=== PATIENT | female | born 2000 | race Hispanic/Latino ===

== ENCOUNTER 2020-10-17 19:00 | Outpatient (CLI) | payer MEDICAID ==
[2020-10-17 19:38] VITALS: BP 120/76
== END 2020-10-17 22:00 | disposition home or self-care (01) ==
LOC: TRG 19:00 → APU 19:04 → TRG 22:00
PROVIDERS: ATTEND Obstetrics & Gynecology
DX: Z34.93 Encounter for supervision of normal pregnancy, unspecified, third trimester (principal); Z3A.37 37 weeks gestation of pregnancy
CPT/HCPCS: 36415; 59025; 84112

== ENCOUNTER 2020-10-28 10:27 | Outpatient (CLI) | payer MEDICAID ==
[2020-10-28 10:46] VITALS: BP 122/78
== END 2020-10-28 11:39 | disposition home or self-care (01) ==
LOC: TRG 10:27 → APU 10:28 → TRG 11:39
PROVIDERS: ATTEND Obstetrics & Gynecology
DX: Z34.93 Encounter for supervision of normal pregnancy, unspecified, third trimester (principal); Z3A.38 38 weeks gestation of pregnancy
CPT/HCPCS: 59025

== ENCOUNTER 2020-10-29 04:04 | Inpatient (IN) | payer MEDICAID ==
[2020-10-29] MEDS ORDERED: LIDOCAINE (2%) 20 MG/1 ML VIAL 20 ML MDV INFILTRATI ONE ×2 (05:08→10:05)
[2020-10-29] MEDS ORDERED: NALOXONE 0.4 MG/1 ML INJ IV PRN (05:08)
[2020-10-29] MEDS ORDERED: BUTORPHANOL 2 MG/1 ML INJ IV PRN ×2 (05:08)
[2020-10-29] MEDS ORDERED: ePHEDrine SULFATE 50 MG/1 ML INJ IV PRN (05:08)
[2020-10-29] MEDS ORDERED: ONDANSETRON 4 MG/2 ML INJ IV PRN (05:08)
[2020-10-29] MEDS ORDERED: MINERAL OIL 30 ML ORAL LIQD PO PRN (05:08)
[2020-10-29] MEDS ORDERED: CARBOPROST TROMETHAMINE 250 MCG/1 ML INJ IM PRN (05:08)
[2020-10-29] MEDS ORDERED: OXYTOCIN 10 UNIT/1 ML INJ IM PRN (05:08)
[2020-10-29] MEDS ORDERED: METHYLERGONOVINE MALEATE 0.2 MG/ML VIAL IM PRN (05:08)
[2020-10-29] MEDS ORDERED: fentaNYL 100 MCG/2 ML INJ IV PRN (05:08)
[2020-10-29] MEDS ORDERED: LOPERAMIDE 2 MG CAP PO PRN (05:08)
[2020-10-29] MEDS ORDERED: miSOPROStol 200 MCG TAB PR PRN (05:08)
[2020-10-29] MEDS ORDERED: TERBUTALINE 1 MG/1 ML INJ SUB-Q PRN (05:08)
[2020-10-29] MEDS ORDERED: LACTATED RINGERS 1,000 ML IV SCH (05:15)
[2020-10-29] MEDS ORDERED: OXYTOCIN DRIP 30 UNITS/500 ML BAG IV SCH ×2 (06:00)
[2020-10-29 06:18] LABS: Hematocrit 31.5 % (30.3-42.9); Hemoglobin 10.2 gm/dl (10.1-14.3); Mean Corpuscular HGB Conc 33 % (30-34); Mean Corpuscular Volume 86 fl (79-97); Platelet Count 284 K/mm3 (140-440); Red Blood Count 3.65 M/mm3 (3.65-5.03); Red Cell Distribution Width 13.2 % (13.2-15.2)
[2020-10-29] MEDS ORDERED: WITCH HAZEL/ GLYCERIN PAD TP PRN (11:33)
[2020-10-29] MEDS ORDERED: BENZOCAINE/MENTHOL 20/0.5% TOP SPRAY 56 GM TP PRN (11:33)
[2020-10-29] MEDS ORDERED: LANOLIN/ZINC/DIMETHICONE (LANSINOH) 7 GM TP PRN (11:33)
[2020-10-29] MEDS ORDERED: PROMETHAZINE 25 MG TAB PO PRN (11:33)
[2020-10-29] MEDS ORDERED: diphenhydrAMINE 25 MG CAP PO PRN (11:33)
[2020-10-29] MEDS ORDERED: oxyCODONE /ACETAMINOPHEN 5-325MG TAB PO PRN (11:33)
[2020-10-29] MEDS ORDERED: MAGNESIUM HYDROXIDE (MOM) ORAL LIQD UDC PO PRN (11:33)
--- NOTE | 2020-10-29 12:03 | History and Physical Report ---
History of Present Illness Date of examination: 10/29/20 Date of admission: 10/29/20 04:05 Chief complaint: Active labor History of present illness: 19yo at 38.6 wks gestation. Initiated care with [facility] at 14wk gestation. Her has been complicated by asymetrical IUGR (total EFW - 10.5%tile). She presented to [facility] this am with reports of painful ctxs and cervical exam found to be 5cm. Reports +FM. Denies VB or LOF. Labs: O+, antibody negative; HIV negative; RPR negative; HBsAg negative; HSVs negative; Gc/Chlamydia/Trich negative; Rubella immune; 1hr gtt -105; GBS negative. Past History Past Medical History: no pertinent history Past Surgical History: other (Elective ) Family/Genetic History: hypertension Social history: single, Lives alone, full code. denies: smoking, alcohol abuse, prescription drug abuse, IV drug use - Obstetrical History Expected Date of Delivery: 11/06/20 Actual Gestation: 38 Week(s) 6 Day(s) : 2 Para: 0 Hx # Term Pregnancies: 0 Number of Pregnancies: 0 Spontaneous Abortions: 0 Induced : 1 Number of Living Children: 0 Medications and Allergies Allergies Allergy/AdvReac Type Severity Reaction Status Date / Time No Known Allergies Allergy Verified 10/29/20 07:21 Home Medications Medication Instructions Recorded Confirmed Last Taken Type No Known Home Medications [No 10/29/20 10/29/20 Unknown History Reported Home Medications] Active Meds: Active Medications Benzocaine/Menthol (Benzocaine/Menthol 20/0.5% Top [place] 56 Gm) 1 spray TP PRN PRN PRN Reason: Episiotomy Pain Bisacodyl (Bisacodyl 10 Mg Rect Supp) 10 mg DC BID PRN PRN Reason: Constipation Butorphanol Tartrate (Butorphanol 2 Mg/1 Ml Inj) 1 mg IV Q2H PRN PRN Reason: Pain, Moderate(4-6) LABOR PAIN Butorphanol Tartrate (Butorphanol 2 Mg/1 Ml Inj) 2 mg IV Q2H PRN PRN Reason: Pain , Severe (7-10) Last Admin: 10/29/20 07:19 Dose: 2 mg Documented by: Carboprost Tromethamine (Carboprost Tromethamine 250 Mcg/1 Ml Inj) 250 mcg IM ONCE PRN PRN Reason: Uterine Bleeding Diphenhydramine HCl (Diphenhydramine 25 Mg Cap) 25 mg PO Q6H PRN PRN Reason: Itching Ephedrine Sulfate (Ephedrine Sulfate 50 Mg/1 Ml Inj) 10 mg IV Q2M PRN PRN Reason: Hypotension Fentanyl (Fentanyl 100 Mcg/2 Ml Inj) 100 mcg IV Q2H PRN PRN Reason: Pain,Severe (7-10) LABOR PAIN Oxytocin/Sodium Chloride (Pitocin/Ns 30 Unit/500ml) 30 units in 500 mls @ 2 mls/hr IV TITR CANELO; Protocol Lactated Ringer's (Lactated Ringers) 1,000 mls @ 125 mls/hr IV DIRECT CANELO Last Admin: 10/29/20 07:36 Dose: 125 mls/hr Documented by: Oxytocin/Sodium Chloride (Pitocin/Ns 30 Unit/500ml) 30 units in 500 mls @ 40 mls/hr IV TITR CANELO; Protocol Last Admin: 10/29/20 10:11 Dose: 165 ml/hr, 165 mls/hr Documented by: Ibuprofen (Ibuprofen 600 Mg Tab) 600 mg PO Q6H CANELO Loperamide HCl (Loperamide 2 Mg Cap) 2 mg PO ONCE PRN PRN Reason: give with Hemabate Magnesium Hydroxide (Magnesium Hydroxide (Mom) Oral Liqd Udc) 30 ml PO HS PRN PRN Reason: Constipation Methylergonovine Maleate (Methylergonovine Maleate 0.2 Mg/Ml Vial) 0.2 mg IM ONCE PRN PRN Reason: Uterine Bleeding Mineral Oil (Mineral Oil 30 Ml Oral Liqd) 30 ml PO QHS PRN PRN Reason: Constipation Misoprostol (Misoprostol 200 Mcg Tab) 800 mcg DC ONCE PRN PRN Reason: Uterine Bleeding Multi-Ingredient Ointment (Lanolin/Zinc/Dimethicone (Lansinoh) 7 Gm) 1 applic TP PRN PRN PRN Reason: Sore Nipples Multivitamins/Iron/Calcium ( Mto67-On Fumarate-Folic Acid Vit Tab) 1 each PO QDAY CANELO Naloxone HCl (Naloxone 0.4 Mg/1 Ml Inj) 0.1 mg IV Q2MIN PRN PRN Reason: Res Rate </= 8 or 02 SAT < 92% Ondansetron HCl (Ondansetron 4 Mg/2 Ml Inj) 4 mg IV Q8H PRN PRN Reason: Nausea And Vomiting Oxycodone/Acetaminophen (Oxycodone /Acetaminophen 5-325mg Tab) 1 tab PO Q6H PRN PRN Reason: Pain, Moderate (4-6) Oxytocin (Oxytocin 10 Unit/1 Ml Inj) 10 unit IM ONCE PRN PRN Reason: Uterine Bleeding Promethazine HCl (Promethazine 25 Mg Tab) 25 mg PO Q6H PRN PRN Reason: Nausea And Vomiting Sodium Chloride (Sodium Chloride 0.9% 10 Ml Flush Syringe) 10 ml IV PRN NR Stop: 10/30/20 11:59 Terbutaline Sulfate (Terbutaline 1 Mg/1 Ml Inj) 0.25 mg SUB-Q ONCE PRN PRN Reason: Hyperstimulation/Hypertonicity [place]/Glycerin (Witch [place]/ Glycerin Pad) 1 each TP PRN PRN PRN Reason: Hemorrhoid/cleansing/soothing - Vital Signs Vital signs: Vital Signs Pulse BP 81 124/84 10/29/20 04:41 10/29/20 04:41 Temp Pulse Resp BP Pulse Ox 98.3 F 102 H 18 126/59 96 10/29/20 11:35 10/29/20 11:46 10/29/20 11:35 10/29/20 11:40 10/29/20 11:46 - Physical Exam Breasts: Positive: normal Cardiovascular: Regular rate Lungs: Positive: Normal air movement Abdomen: Positive: other (gravid) Genitourinary (Female): Positive: normal external genitalia, normal perenium Vagina: Positive: normal moisture Uterus: Positive: enlarged (S<D) Extremities: Positive: normal Deep Tendon Reflex Grade: Normal +2 - Obstetrical FHR: category 2 Uterine Contraction Monitor Mode: External Cervical Dilatation: 10 Cervical Effacement Percentage: 100 station: 1 Uterine Contraction Pattern: Regular Uterine Contraction Intensity: Strong/Firm Results Result Diagrams: 10/29/20 05:45 Abnormal lab results 10/29/20 Range/Units 05:45 WBC 12.2 H (4.5-11.0) K/mm3 All other labs normal. Assessment and Plan - Patient Problems (1) Active labor at term Current Visit: Yes Status: Acute Plan to address problem: Admit to L & D AROM @ 08, clear fluids Anticipate (2) IUGR (intrauterine growth restriction) affecting care of mother Current Visit: Yes Status: Acute Qualifiers: Fetus number: single or unspecified fetus
--- NOTE | 2020-10-29 12:09 | Procedure Note ---
OB Delivery Note - Delivery Date of Delivery: 10/29/20 (1451) Estimated blood loss: 200cc - Vaginal Delivery presentation: vertex, compound (left hand) Delivery position: OA Intrapartum events: none Delivery induction: AROM (848) Delivery augmentation: rupture of membranes Delivery monitor: external FHT, external uterine Route of delivery: Delivery placenta: spontaneous (958) Delivery cord: 3 umbilical vessels Episiotomy: none Delivery laceration: 2nd degree (perienal) Delivery repair: vicryl (3.0 - SH) Anesthesia: local Delivery comments: of viable, crying male infant placed directly to maternal abdomen. Placenta spontaneously delivered. Cord double clamped, cut by FOB after 8mins per pt request. Cord blood collected and sent to lab. Uterus firm @ U-3, hemostasis maintained. Perineum with 2nd degree laceration, repaired. Mother and baby safe, stable and left in care of RN. - Infant A at 1 minute: 8 at 5 minutes: 9 Gender: Male (Weight: 2920 gms (6lbs 7ozs) 17.5 inches)
[2020-10-29] MEDS: IBUPROFEN 600 MG TAB PO SCH (19:21)
[2020-10-30 00:05] LABS: Hemoglobin 9.6 gm/dl (10.1-14.3)
[2020-10-30] MEDS: IBUPROFEN 600 MG TAB PO SCH ×5 (05:32→18:11)
[2020-10-30] MEDS ORDERED: PRENATAL VIT27-FE FUMARATE-FOLIC ACID VIT TAB PO SCH (10:00)
--- NOTE | 2020-10-30 10:20 | Progress Note ---
Assessment and Plan - Patient Problems (1) Status post normal vaginal delivery Current Visit: Yes Status: Acute Plan to address problem: Continue routine PP orders Anticipate d/c home in 48 hrs if stable Subjective - Subjective Date of service: 10/30/20 Principal diagnosis: S/P ; PPD#1 Interval history: 19yo at 38.6 wks gestation. Initiated care with [facility] at 14wk gestation. Her has been complicated by asymetrical IUGR (total EFW - 10.5%tile). She presented to [facility] this am with reports of painful ctxs and cervical exam found to be 5cm. Reports +FM. Denies VB or LOF. Patient reports: appetite normal, voiding normally, pain well controlled, flatus, ambulating normally : doing well Objective - Vital Signs Latest vital signs: Vital Signs Temp Pulse Resp BP BP Pulse Ox 10/30/20 06:26 18 10/30/20 05:32 18 10/30/20 01:00 98.2 F 88 18 136/74 100 10/29/20 21:45 98.0 F 88 20 100/56 99 10/29/20 20:01 18 10/29/20 16:30 97.7 F 10/29/20 16:28 100 H 16 108/69 100 10/29/20 12:45 97.3 F L 95 H 18 127/69 98 10/29/20 11:46 102 H 96 10/29/20 11:41 107 H 98 10/29/20 11:40 97 H 126/59 10/29/20 11:36 105 H 97 10/29/20 11:35 98.3 F 18 10/29/20 11:31 95 H 98 10/29/20 11:26 97 H 98 10/29/20 11:21 100 H 97 10/29/20 11:17 106 H 91 10/29/20 11:16 101 H 117/63 98 10/29/20 11:11 92 H 99 10/29/20 11:06 99 H 99 10/29/20 11:01 101 H 99 10/29/20 10:56 100 H 130/74 99 10/29/20 10:51 97 H 99 10/29/20 10:46 108 H 98 10/29/20 10:41 117 H 100 10/29/20 10:36 110 H 98 05/15/21 10:31 104 H 99 10/29/20 10:29 107 H 93 10/29/20 10:26 97 H 100 10/29/20 10:21 104 H 98 10/29/20 10:20 98.5 F 18 10/29/20 10:16 97 H 133/76 99 10/29/20 10:11 95 H 100 10/29/20 10:06 96 H 100 10/29/20 10:03 106 H 128/60 10/29/20 10:01 108 H 100 10/29/20 10:00 98.3 F 20 10/29/20 09:56 114 H 99 10/29/20 09:51 125 H 99 10/29/20 09:46 104 H 100 10/29/20 09:41 105 H 93 10/29/20 09:36 98 H 100 10/29/20 09:31 106 H 99 10/29/20 09:27 97 H 94 10/29/20 09:26 100 H 99 10/29/20 09:21 113 H 96 10/29/20 09:16 102 H 98 10/29/20 09:11 104 H 98 10/29/20 09:06 87 99 10/29/20 09:01 100 H 98 10/29/20 08:56 108 H 98 Intake and Output 10/29/20 10/30/20 10/30/20 22:59 06:59 14:59 Intake Total 600 Output Total 800 Balance -200 Intake: Oral 240 Intake, Free Water 360 Output: Urine 800 Void 800 Other: Total, Intake Amount 240 Total, Output Amount 200 # Voids Void 1 - Exam Breasts: Present: normal Cardiovascular: Present: Regular rate Lungs: Present: Normal air movement Abdomen: Present: soft Uterus: Present: firm, fundal height below umbilicus Extremities: Present: normal Incision: Present: other (perineal laceration, healing as expected) - Labs Labs: Abnormal lab results 10/29/20 Range/Units 22:50 Hgb 9.6 L (10.1-14.3) gm/dl Hct 29.0 L (30.3-42.9) %
--- NOTE | 2020-10-30 10:31 | Discharge Summary ---
Providers - Providers Date of Admission: 10/29/20 04:05 Date of discharge: 10/30/20 Attending physician: ANTHONY ROSAS 10/29/20 11:36 Consult to Accreditation Manager [CONS] Routine Reason For Exam: assistance with , SNS Primary care physician: ANTHONY ROSAS Hospitalization Reason for admission: active labor Delivery: Procedure details: Please see delivery note. Episiotomy: none Laceration: 2nd degree Other procedures: none complications: none Discharge diagnosis: IUP at term delivered baby: male Hospital course: Pt was admitted in active labor and went on to have a vaginal delivery which she tolerated well. She was observed on until she met discharge criteria. She will follow up in the office in two weeks for laceration check. Condition at discharge: Stable Disposition: TO HOME OR SELFCARE - Discharge Diagnoses (1) Status post normal vaginal delivery Status: Acute (2) Anemia Status: Acute Qualifiers: Anemia type: unspecified type Qualified Code(s): D64.9 - Anemia, unspecified Plan - Discharge Medications Prescriptions: Ferrous Sulfate [Feosol 325 MG tab] 325 mg PO BID #60 tablet Ibuprofen [Motrin 800 MG tab] 800 mg PO Q8HR PRN #30 tablet PRN Reason: Pain, Moderate (4-6) HYDROcodone/APAP 5-325 [[place] 5/325] 1 each PO Q6HR PRN #10 tablet PRN Reason: Pain - Provider Discharge Summary Activity: routine, no sex for 6 weeks, no heavy lifting 4 weeks, no strenuous exercise Diet: routine Instructions: routine Additional instructions: [] Smoking cessation referral if applicable(refer to patient education folder for contact #) [] Refer to [facility] Booklet Call your doctor immediately for: * Fever > 100.5 * Heavy vaginal bleeding ( >1 pad per hour) * Severe persistent headache * Shortness of breath * Reddened, hot, painful area to leg or breast * Drainage or odor from incision. * Keep incision clean and dry at all times and follow doctor's instructions regarding bathing/showering - Follow up plan Follow up: CAITLIN RAY, DIP FILLER [Advanced Practice Nurse] - 14 Days (please schedule a laceration check )
[2020-10-30 16:37] VITALS: BP 105/62
== END 2020-10-30 18:20 | disposition home or self-care (01) | DRG 775 ==
LOC: TRG 04:04 → APU 04:05 → LD 04:05 → TRG 05:08 → LD 05:31 → OB 12:35
PROVIDERS: ADMIT Obstetrics & Gynecology; ATTEND Obstetrics & Gynecology
PROC: 10E0XZZ Delivery of Products of Conception, External Approach (ICD-10-PCS; principal; 2020-10-29)
PROC: 10907ZC Drainage of Amniotic Fluid, Therapeutic from Products of Conception, Via Natural or Artificial Opening (ICD-10-PCS; 2020-10-29)
PROC: 0KQM0ZZ Repair Perineum Muscle, Open Approach (ICD-10-PCS; 2020-10-29)
DX: O36.5930 Maternal care for other known or suspected poor fetal growth, third trimester, not applicable or unspecified (principal); Z37.0 Single live birth; D64.9 Anemia, unspecified; Z3A.38 38 weeks gestation of pregnancy; Z20.822 Contact with and (suspected) exposure to COVID-19; Z82.49 Family history of ischemic heart disease and other diseases of the circulatory system; O70.1 Second degree perineal laceration during delivery
CPT/HCPCS: 36415; 59025; 85014; 85018; 85027; 86592; 86850; 86900; 86901; G0378; A6250; J0595; J2590; J7120